=== PATIENT | female | born 1995 | race Hispanic/Latino ===

== ENCOUNTER 2019-06-01 15:39 | Emergency (ER) | payer SELFPAY ==
[2019-06-01] MEDS ORDERED: dexAMETHasone 4 MG TAB ONE (16:49)
[2019-06-01] MEDS ORDERED: dexAMETHasone 4 MG/ML VIAL ONE (16:52)
--- NOTE | 2019-06-01 17:33 | ER ---
Nurse's Notes [facility] Name: Marilyn Lombardi Age: 24 yrs Sex: Female : 1995 Arrival Date: 06/01/2019 Time: 15:42 Bed 9 Private MD: Diagnosis: Acute tonsillitis Presentation: 06/01 16:00 Presenting complaint: Patient states: "I just feel tired today and my tonsils are aa5 swollen". Pt denies cough. Transition of care: patient was not received from another setting of care. Onset of symptoms was June 01, 2019. Risk Assessment: Do you want to hurt yourself or someone else? Patient reports no desire to harm self or others. Initial Sepsis Screen: Does the patient meet any 2 criteria? No. Patient's initial sepsis screen is negative. Does the patient have a suspected source of infection? No. Patient's initial sepsis screen is negative. Care prior to arrival: None. 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 - Social history:: Smoking status: Patient/guardian denies using tobacco. - Ebola Screening: : No symptoms or risks identified at this time. Vital Signs: 16:01 BP 108 / 75; Pulse 83; Resp 16 S; Temp 97.4(TE); Pulse Ox 100% on R/A; Weight 115.67 kg aa5 (R); Height 5 ft. 2 in. (157.48 cm) (R); Pain 4/10; 16:01 Body Mass Index 46.64 (115.67 kg, 157.48 cm) aa5 ED Course: 15:42 Patient arrived in ED. as 16:00 Triage completed. aa5 16:01 Arabella Piper FNP-C is [facility]. kb 16:01 Carlos Harvey MD is Attending Physician. kb 16:01 Arm band placed on. aa5 16:03 Loulou Quintana RN is Primary Nurse. iw 16:43 Missed attempt(s): 22 gauge in right forearm. Missed attempt by GRUPO Shannon aa5 . Bleeding controlled, band aid applied, catheter tip intact. 16:45 Missed attempt(s): 22 gauge in left forearm. Bleeding controlled, band aid applied, aa5 catheter tip intact. 16:52 Initial lab(s) drawn, by de, sent to lab. Inserted saline lock: 20 gauge in left em1 antecubital area, using aseptic technique. Blood collected. Administered Medications: 16:54 Drug: Decadron - Dexamethasone 10 mg Route: IVP; Site: left antecubital; aa5 Outcome: 17:33 Discharge ordered by . kb 17:52 Patient left the ED. iw Signatures: Arabella Piper, RAHUL-C RAHUL-Patricia Delatorre Irene, Rogelio Shin RN [facility] Eleanor Vegas, RN RN aa5 Corrections: (The following items were deleted from the chart) 16:02 16:01 LMP 04/05/2019 bianca aa5
--- NOTE | 2019-06-01 17:34 | EDPHYS ---
Physician Documentation [facility] Name: Marilyn Lombardi Age: 24 yrs Sex: Female : 1995 Arrival Date: 06/01/2019 Time: 15:42 Bed 9 Private MD: ED Physician Carlos Harvey HPI: 06/01 17:08 This 24 yrs old Female presents to ER via Ambulatory with complaints of Sore kb Throat, Fatigue. 17:08 The patient presents with sore throat. The patient describes throat pain as constant. kb Onset: The symptoms/episode began/occurred today. Severity of symptoms: At their worst the symptoms were moderate, in the emergency department the symptoms are unchanged. Modifying factors: The symptoms are alleviated by nothing, the symptoms are aggravated by swallowing, Patient's oral intake status: limited fluid intake, limited food intake, Denies contact with similarly ill indivduals. Associated signs and symptoms: Pertinent positives: flu-like symptoms, Sore throat. The patient has not experienced similar symptoms in the past. The patient has not recently seen a physician. 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 - Social history:: Smoking status: Patient/guardian denies using tobacco. - Ebola Screening: : No symptoms or risks identified at this time. ROS: 17:07 Neck: Negative for injury, pain, and swelling, Cardiovascular: Negative for chest pain, kb palpitations, and edema, Respiratory: Negative for shortness of breath, cough, wheezing, and pleuritic chest pain, Abdomen/GI: Negative for abdominal pain, nausea, vomiting, diarrhea, and constipation, : Negative for injury, bleeding, discharge, and swelling, MS/Extremity: Negative for injury and deformity, Skin: Negative for injury, rash, and discoloration, Neuro: Negative for headache, weakness, numbness, tingling, and seizure. 17:07 Constitutional: Positive for fatigue. 17:07 ENT: Positive for sore throat. Exam: 17:07 Constitutional: This is a well developed, well nourished patient who is awake, alert, kb and in no acute distress. Head/Face: Normocephalic, atraumatic. Neck: Trachea midline, no thyromegaly or masses palpated, and no cervical lymphadenopathy. Supple, full range of motion without nuchal rigidity, or vertebral point tenderness. No Meningismus. Chest/axilla: Normal chest wall appearance and motion. Nontender with no deformity. No lesions are appreciated. Cardiovascular: Regular rate and rhythm with a normal S1 and S2. No gallops, murmurs, or rubs. Normal PMI, no JVD. No pulse deficits. Respiratory: Lungs have equal breath sounds bilaterally, clear to auscultation and percussion. No rales, rhonchi or wheezes noted. No increased work of breathing, no retractions or nasal flaring. Abdomen/GI: Soft, non-tender, with normal bowel sounds. No distension or tympany. No guarding or rebound. No evidence of tenderness throughout. Skin: Warm, dry with normal turgor. Normal color with no rashes, no lesions, and no evidence of cellulitis. MS/ Extremity: Pulses equal, no cyanosis. Neurovascular intact. Full, normal range of motion. Neuro: Awake and alert, GCS 15, oriented to person, place, time, and situation. Cranial nerves II-XII grossly intact. Motor strength 5/5 in all extremities. Sensory grossly intact. Cerebellar exam normal. Normal gait. 17:07 ENT: Posterior pharynx: Airway: normal, no evidence of obstruction, Tonsils: bilaterally enlarged, with erythema, Uvula: normal, midline, swelling, that is moderate, erythema, that is mild, exudate, is not appreciated. Vital Signs: 16:01 BP 108 / 75; Pulse 83; Resp 16 S; Temp 97.4(TE); Pulse Ox 100% on R/A; Weight 115.67 kg aa5 (R); Height 5 ft. 2 in. (157.48 cm) (R); Pain 4/10; 16:01 Body Mass Index 46.64 (115.67 kg, 157.48 cm) aa5 MDM: 16:03 Patient medically screened. kb 17:07 Data reviewed: vital signs, nurses notes. Data interpreted: Pulse oximetry: on room air kb is 100 %. Interpretation: normal. 17:32 Counseling: I had a detailed discussion with the patient and/or guardian regarding: the kb historical points, exam findings, and any diagnostic results supporting the discharge/admit diagnosis, lab results, the need for outpatient follow up, a family practitioner, to return to the emergency department if symptoms worsen or persist or if there are any questions or concerns that arise at home. 06/01 16:01 Order name: Strep; Complete Time: 17:39 kb 06/01 16:24 Order name: [place] Screen Profile; Complete Time: 17:09 kb 06/01 16:24 Order name: IV Start; Complete Time: 16:52 kb 06/01 17:48 Order name: Throat Culture EDMS Administered Medications: 16:54 Drug: Decadron - Dexamethasone 10 mg Route: IVP; Site: left antecubital; aa5 Disposition: 06/02 07:56 Co-signature as Attending Physician, Carlos Harvey MD I agree with the assessment and kdr plan of care. Disposition: 06/01/19 17:33 Discharged to Home. Impression: Acute tonsillitis. - Condition is Stable. - Discharge Instructions: Tonsillitis, [id number]. - Prescriptions for Augmentin 875- 125 mg Oral Tablet - take 1 tablet by ORAL route every 12 hours for 10 days; 20 tablet. - Medication Reconciliation Form, Thank You Letter, Antibiotic Education, Prescription Opioid Use form. - Follow up: Emergency Department; When: As needed; Reason: Worsening of condition. Follow up: Private Physician; When: 2 - 3 days; Reason: Recheck today's complaints, Continuance of care, Re-evaluation by your physician. Signatures: Dispatcher [employer] EDKS Arabella Piper, SWIMMING POOL SERVICE TECHNICIAN-C SWIMMING POOL SERVICE TECHNICIAN-Ckb Carlos Harvey MD MD [facility] Loulou Quintana, RIMA RN iw Eleanor Vegas, RIMA RN aa5 Corrections: (The following items were deleted from the chart) 06/01 17:52 17:33 06/01/2019 17:33 Discharged to Home. Impression: Acute tonsillitis. Condition is iw Stable. Discharge Instructions: Tonsillitis, [id number]. Prescriptions for Augmentin 875-125 mg Oral Tablet - take 1 tablet by ORAL route every 12 hours for 10 days; 20 tablet. and Forms are Medication Reconciliation Form, Thank You Letter, Antibiotic Education, Prescription Opioid Use. Follow up: Emergency Department; When: As needed; Reason: Worsening of condition. Follow up: Private Physician; When: 2 - 3 days; Reason: Recheck today's complaints, Continuance of care, Re-evaluation by your physician. kb
[2019-06-01 17:58] VITALS: BP 108/75; TEMP 97.4; O2SAT 100
== END 2019-06-01 17:52 | disposition home or self-care (01) ==
LOC: ER 15:39
DX: J03.90 Acute tonsillitis, unspecified (principal)
CPT/HCPCS: 36415; 86308; 87070; 87081; 96374; 99283; J8540